=== PATIENT | male | born 1990 | race Caucasian/White ===

== ENCOUNTER → 2018-11-15 | Outpatient (CLI) | payer MEDICAID, OTHER ==
[2018-11-15 16:37] LABS: Albumin 4.7 g/dL (3.80-4.90); Albumin/Globulin Ratio 1.57 (1.60-3.17); Bilirubin, Conjugated 0.2 mg/dL (0.20-0.40); Bilirubin,Unconjugated 0.4 mg/dL; LDL Cholesterol,Calculated 160.4 mg/dL (0.0-131.0); Total Bilirubin 0.6 mg/dL (0.2-1.2); Total Protein 7.7 g/dL (6.2-8.2); VLDL Calculation 34.6 mg/dL (5.00-40.00)
[2018-11-15 16:44] LABS: T4, Free (Free Thyroxine) 0.9 ng/dL (0.80-1.80)
[2018-11-15 18:38] LABS: Hemoglobin A1C 6.2 % (4.0-6.0)
== END | disposition home or self-care (01) ==
LOC: LABWHC1 08:45
PROVIDERS: ATTEND Psychiatry & Neurology Psychiatry
DX: F90.2 Attention-deficit hyperactivity disorder, combined type (principal)
CPT/HCPCS: 36415; 80061; 80076; 82947; 83036; 84439; 84443